=== PATIENT | male | born 1975 | race Caucasian/White ===

== ENCOUNTER 2016-09-11 15:47 | Observation (INO) ==
[2016-09-11] MEDS ORDERED: 0.9 % Sodium Chloride 1,000 ML IVC ONE (16:42)
--- NOTE | 2016-09-11 16:51 | Emergency Department Note ---
Disposition Clinical Impression: Syncope and collapse, Aneurysm artery, neck Disposition: Admitted As Inpatient Condition: Fair Referrals: Heaven Vega CNP [Primary Care Provider] - Forms: ED Satisfaction Letter General Adult HPI - General Chief complaint: ED Dizziness Stated complaint: Chest pain, passed out twice Time Seen by Provider: 09/11/16 16:02 Source: patient Nursing Notes Reviewed: Yes Vital Signs Reviewed: Yes - History of Present Illness Pain Scale: 5 - Related Data Home Medications Medication Instructions Recorded Confirmed Buprenorphine HCl/Naloxone HCl 2 film SL DAILY 10/06/15 04/24/16 [Suboxone 8 mg-2 mg Sl Film] Metformin [Glucophage] 500 mg PO BID 10/06/15 04/24/16 Potassium Chloride [K-Tab ER] 40 meq PO QID 10/06/15 04/24/16 Simvastatin [Zocor] 40 mg PO HS 10/06/15 04/24/16 Allergies Allergy/AdvReac Type Severity Reaction Status Date / Time dextrose AdvReac See Verified 09/11/16 16:00 Comments Glucose AdvReac See Verified 09/11/16 16:00 Comments Past Medical History - Past Medical History Medical history: Reports: diabetes, GERD, hyperlipidemia, kidney stones Surgical history: Reports: appendectomy, cholecystectomy Psychiatric history: Reports: no psych history - Social History Smoking Status: Current every day smoker Smokeless Tobacco Status: No Alcohol use: Reports: none Drug use: Reports: none Physical Exam - General General appearance: alert, in no apparent distress Course Vital Signs Temperature 97.5 F L 09/11/16 15:58 Pulse Rate 100 09/11/16 15:58 Respiratory Rate 18 09/11/16 15:58 Blood Pressure 132/82 09/11/16 15:58 O2 Sat by Pulse Oximetry 96 09/11/16 15:58 Temperature 97.5 F L 09/11/16 15:58 Pulse Rate 90 09/11/16 18:03 Respiratory Rate 14 09/11/16 18:03 Blood Pressure 138/60 09/11/16 18:03 O2 Sat by Pulse Oximetry 98 09/11/16 18:03 Oxygen Delivery Oxygen Delivery Room Air Medical Decision Making - MDM Narrative Medical decision making narrative: I examined this patient and my medical decision-making was reviewed with the PROSTHETIC AIDES TEACHER/PA/Advanced Practice Nurse/Resident Physician. I agree with the documented findings, disposition and treatment plan as described except to the extent set forth below. Patient was evaluated by myself and Dr. Bryson, agree with his evaluation and management plan, supervise care the patient's stay. Patient comes in today with episodes of near-syncope 2 and also syncope all while not exerting himself. He said been occurring while he rests. It is some pain on his upper chest and his neck. He had a cardiac catheterization on his heart done this past fall. He is scheduled for an EEG as he has had seizures in the past but his noted no seizure activity when these events happen. It also thought about doing a carotid duplex were negative CT of his head and neck check labs and reassess. He may need admission. Question is whether he is having a seizure, whether he is having episodes of true syncope could be a arrhythmia. And we will see what we can find here in the department. He is in agreement with this plan. Chest X-Ray 09/11/16 16:01 IMPRESSION: No acute cardiopulmonary disease. D/ / 09/11/2016 16:27:33 Dm Chi MD / lyn Interpreting Provider: Dm Chi MD Angiography CT 09/11/16 16:42 IMPRESSION: 1. No acute intracranial abnormality. 2. Unremarkable CTA of the head. 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 RECOMMENDATIONS: Vascular consultation. D/ / Phan Li MD / Phan Li MD Interpreting Provider: Phan Li MD 1900 hrs.: Patient is going to be admitted were to speak with vascular about these aneurysms. And then bring him in to the hospital. Patient's in agreement with this plan is previous. - Lab Data Result diagrams: 09/11/16 16:55 09/11/16 16:55 Lab Results 09/11/16 09/11/16 09/11/16 Range/Units 16:55 16:55 16:55 WBC 11.7 H (4.3-11.1) K/mcL RBC 5.37 (4.19-5.50) M/mcL Hgb 16.8 (12.9-16.9) g/dL Hct 48.4 (37.5-50.1) % MCV 90.1 (83.0-100.0) fL MCH 31.3 (28.0-33.3) pg MCHC 34.7 (31.6-35.5) g/dL RDW 13.1 (11.5-14.5) % Plt Count 300 (140-400) K/mcL MPV 9.1 L (9.4-12.4) fL Immature Gran % 0.4 (0-4) % Seg Neutrophils % 51.4 % Lymphocytes % 36.8 % Monocytes % 8.6 % Eosinophils % 1.8 % Basophils % 1.0 % Neutrophils # 6.0 (1.6-8.9) K/mcL Lymphocytes # 4.3 (0.6-4.6) K/mcL Monocytes # 1.0 (0.0-1.3) K/mcL Eosinophils # 0.2 (0.0-0.6) K/mcL Basophils # 0.1 (0.0-0.2) K/mcL PT 10.8 (9.4-12.1) Seconds INR 1.0 APTT 31.2 (26.0-36.0) Seconds Sodium 138 (136-145) mEq/L Potassium 3.7 (3.5-4.5) mEq/L Chloride 103 (98-109) mEq/L Carbon Dioxide 24 (19-29) mEq/L BUN 8 (8-26) mg/dL Creatinine 0.80 (0.72-1.25) mg/dL Est GFR ( Amer) > 60 (> 60) Est GFR (Non-Af Amer) > 60 (> 60) BUN/Creatinine Ratio 10 (6-26) Glucose 172 H (70-99) mg/dL Calculated Osmolality 288 (280-300) Calcium 8.9 (8.6-10.8) mg/dL Troponin I (0-0.03) ng/mL 09/11/16 Range/Units 16:55 WBC (4.3-11.1) K/mcL RBC (4.19-5.50) M/mcL Hgb (12.9-16.9) g/dL Hct (37.5-50.1) % MCV (83.0-100.0) fL MCH (28.0-33.3) pg MCHC (31.6-35.5) g/dL RDW (11.5-14.5) % Plt Count (140-400) K/mcL MPV (9.4-12.4) fL Immature Gran % (0-4) % Seg Neutrophils % % Lymphocytes % % Monocytes % % Eosinophils % % Basophils % % Neutrophils # (1.6-8.9) K/mcL Lymphocytes # (0.6-4.6) K/mcL Monocytes # (0.0-1.3) K/mcL Eosinophils # (0.0-0.6) K/mcL Basophils # (0.0-0.2) K/mcL PT (9.4-12.1) Seconds INR APTT (26.0-36.0) Seconds Sodium (136-145) mEq/L Potassium (3.5-4.5) mEq/L Chloride (98-109) mEq/L Carbon Dioxide (19-29) mEq/L BUN (8-26) mg/dL Creatinine (0.72-1.25) mg/dL Est GFR ( Amer) (> 60) Est GFR (Non-Af Amer) (> 60) BUN/Creatinine Ratio (6-26) Glucose (70-99) mg/dL Calculated Osmolality (280-300) Calcium (8.6-10.8) mg/dL Troponin I 0.00 (0-0.03) ng/mL
[2016-09-11 17:06] LABS: Basophils # 0.1 K/mcL (0.0-0.2); Eosinophils # 0.2 K/mcL (0.0-0.6); Eosinophils % 1.8 %; Hematocrit 48.4 % (37.5-50.1); Hemoglobin 16.8 g/dL (12.9-16.9); Immature Granulocytes % 0.4 % (0-4); Lymphocytes # 4.3 K/mcL (0.6-4.6); Lymphocytes % 36.8 %; Mean Corpuscular HGB Conc 34.7 g/dL (31.6-35.5); Mean Corpuscular Hemoglobin 31.3 pg (28.0-33.3); Mean Corpuscular Volume 90.1 fL (83.0-100.0); Mean Platelet Volume 9.1 fL (9.4-12.4); Monocytes % 8.6 %; Platelet Count 300 K/mcL (140-400); Red Blood Count 5.37 M/mcL (4.19-5.50); Red Cell Distribution Width 13.1 % (11.5-14.5); Segmented Neutrophils % 51.4 %
[2016-09-11 17:11] LABS: Prothrombin Time 10.8 Seconds (9.4-12.1)
[2016-09-11 17:14] LABS: Activated Partial Thrombo Time 31.2 Seconds (26.0-36.0); BUN/Creatinine Ratio 10 (6-26); Blood Urea Nitrogen 8 mg/dL (8-26); Calcium 8.9 mg/dL (8.6-10.8); Carbon Dioxide 24 mEq/L (19-29); Chloride 103 mEq/L (98-109); Glucose 172 mg/dL (70-99); Osmolality,Calculated 288 (280-300); Potassium 3.7 mEq/L (3.5-4.5); Sodium 138 mEq/L (136-145); eGFR For African Americans > 60 (> 60); eGFR For Non-African Americans > 60 (> 60)
--- NOTE | 2016-09-11 17:18 | Emergency Department Note ---
Disposition Clinical Impression: Syncope and collapse, Aneurysm artery, neck Disposition: Admitted As Inpatient Condition: Good Referrals: Heaven Vega CNP [Primary Care Provider] - Forms: ED Satisfaction Letter General Adult HPI - General Chief complaint: ED Dizziness Stated complaint: Chest pain, passed out twice Time Seen by Provider: 09/11/16 16:02 Source: patient Limitations: no limitations Nursing Notes Reviewed: Yes Vital Signs Reviewed: Yes - History of Present Illness HPI Narrative: 41 y/o male who reports syncope x4 times in the last few days. He admits to syncope while sitting down. Associated is symptoms of presyncope, followed by left neck and left chest pain with dyspnea. He has had witnessed syncope while sitting in his chair at home. Cath done in march which was normal. Medical problems include DM, HLD. He takes metformin and a statin. Does admit to constant left neck pain. Radiation: non-radiation, neck Pain Severity: moderate Pain Scale: 5 Consistency: constant Improves with: nothing Worsens with: nothing Associated symptoms: Reports: denies other symptoms - Related Data Home Medications Medication Instructions Recorded Confirmed Buprenorphine HCl/Naloxone HCl 2 film SL DAILY 10/06/15 04/24/16 [Suboxone 8 mg-2 mg Sl Film] Metformin [Glucophage] 500 mg PO BID 10/06/15 04/24/16 Potassium Chloride [K-Tab ER] 40 meq PO QID 10/06/15 04/24/16 Simvastatin [Zocor] 40 mg PO HS 10/06/15 04/24/16 Potassium Chloride [Klor-Con] 25 meq PO DAILY PRN 09/11/16 09/11/16 Allergies Allergy/AdvReac Type Severity Reaction Status Date / Time dextrose AdvReac See Verified 09/11/16 16:00 Comments Glucose AdvReac See Verified 09/11/16 16:00 Comments All systems ED: reviewed and negative except as stated. Constitutional: Denies: fever Eyes: Denies: vision change ENT ED: Denies: throat pain Cardiovascular: Reports: chest pain Respiratory: Denies: cough Gastrointestinal: Denies: abdominal pain Integumentary: Denies: rash Neurological: Reports: headache Past Medical History - Past Medical History Medical history: Reports: diabetes, GERD, hyperlipidemia, kidney stones Surgical history: Reports: appendectomy, cholecystectomy Psychiatric history: Reports: no psych history - Social History Smoking Status: Current every day smoker Smokeless Tobacco Status: No Alcohol use: Reports: none Drug use: Reports: none Physical Exam - General Limitations: no limitations General appearance: alert, in no apparent distress - Head Head exam: atraumatic - Eye Eye exam: Present: normal appearance - ENT ENT exam: normal exam, normal oropharynx - Neck Neck exam: Present: normal inspection, full ROM, other (no murmur). Absent: tenderness - Chest Chest inspection: Present: normal inspection - Respiratory Respiratory exam: Present: normal lung sounds bilaterally. Absent: respiratory distress - Cardiovascular Cardiovascular exam: Present: regular rate, normal rhythm - Abdominal Exam Abdominal exam: Present: soft, Non-Tender - Extremities Exam Extremities exam: Present: normal inspection - Neurological Exam Neurological exam: Present: alert, oriented X3 - Psychiatric Psychiatric exam: Present: normal affect, normal mood Course Course Narrative: Pt with syncope and associated chest pain and neck pain. Will order CTA of head /neck and chest pain workup. - Reevaluation(s) Reevaluation #1: CTA demonstrates findings concerning for a left ICA aneurysm. Will page Catherine for consultation. Spoke with Catherine who agreed to be a applications development consultant on this case. No plan for surgical intervention tonight. Spoke with hospitalist who accepted for admission Vital Signs Temperature 97.5 F L 09/11/16 15:58 Pulse Rate 100 09/11/16 15:58 Respiratory Rate 18 09/11/16 15:58 Blood Pressure 132/82 09/11/16 15:58 O2 Sat by Pulse Oximetry 96 09/11/16 15:58 Temperature 97.5 F L 09/11/16 15:58 Pulse Rate 90 09/11/16 18:03 Respiratory Rate 14 09/11/16 18:03 Blood Pressure 138/60 09/11/16 18:03 O2 Sat by Pulse Oximetry 98 09/11/16 18:03 Oxygen Delivery Oxygen Delivery Room Air Medical Decision Making - Medical Records Medical records reviewed: Yes I reviewed the patient's medical records. - Lab Data Lab results reviewed: Yes I reviewed the patient's lab results. Result diagrams: 09/11/16 16:55 09/11/16 16:55 Lab Results 09/11/16 09/11/16 09/11/16 Range/Units 16:55 16:55 16:55 WBC 11.7 H (4.3-11.1) K/mcL RBC 5.37 (4.19-5.50) M/mcL Hgb 16.8 (12.9-16.9) g/dL Hct 48.4 (37.5-50.1) % MCV 90.1 (83.0-100.0) fL MCH 31.3 (28.0-33.3) pg MCHC 34.7 (31.6-35.5) g/dL RDW 13.1 (11.5-14.5) % Plt Count 300 (140-400) K/mcL MPV 9.1 L (9.4-12.4) fL Immature Gran % 0.4 (0-4) % Seg Neutrophils % 51.4 % Lymphocytes % 36.8 % Monocytes % 8.6 % Eosinophils % 1.8 % Basophils % 1.0 % Neutrophils # 6.0 (1.6-8.9) K/mcL Lymphocytes # 4.3 (0.6-4.6) K/mcL Monocytes # 1.0 (0.0-1.3) K/mcL Eosinophils # 0.2 (0.0-0.6) K/mcL Basophils # 0.1 (0.0-0.2) K/mcL PT 10.8 (9.4-12.1) Seconds INR 1.0 APTT 31.2 (26.0-36.0) Seconds Sodium 138 (136-145) mEq/L Potassium 3.7 (3.5-4.5) mEq/L Chloride 103 (98-109) mEq/L Carbon Dioxide 24 (19-29) mEq/L BUN 8 (8-26) mg/dL Creatinine 0.80 (0.72-1.25) mg/dL Est GFR ( Amer) > 60 (> 60) Est GFR (Non-Af Amer) > 60 (> 60) BUN/Creatinine Ratio 10 (6-26) Glucose 172 H (70-99) mg/dL Calculated Osmolality 288 (280-300) Calcium 8.9 (8.6-10.8) mg/dL Troponin I (0-0.03) ng/mL 09/11/16 Range/Units 16:55 WBC (4.3-11.1) K/mcL RBC (4.19-5.50) M/mcL Hgb (12.9-16.9) g/dL Hct (37.5-50.1) % MCV (83.0-100.0) fL MCH (28.0-33.3) pg MCHC (31.6-35.5) g/dL RDW (11.5-14.5) % Plt Count (140-400) K/mcL MPV (9.4-12.4) fL Immature Gran % (0-4) % Seg Neutrophils % % Lymphocytes % % Monocytes % % Eosinophils % % Basophils % % Neutrophils # (1.6-8.9) K/mcL Lymphocytes # (0.6-4.6) K/mcL Monocytes # (0.0-1.3) K/mcL Eosinophils # (0.0-0.6) K/mcL Basophils # (0.0-0.2) K/mcL PT (9.4-12.1) Seconds INR APTT (26.0-36.0) Seconds Sodium (136-145) mEq/L Potassium (3.5-4.5) mEq/L Chloride (98-109) mEq/L Carbon Dioxide (19-29) mEq/L BUN (8-26) mg/dL Creatinine (0.72-1.25) mg/dL Est GFR ( Amer) (> 60) Est GFR (Non-Af Amer) (> 60) BUN/Creatinine Ratio (6-26) Glucose (70-99) mg/dL Calculated Osmolality (280-300) Calcium (8.6-10.8) mg/dL Troponin I 0.00 (0-0.03) ng/mL - Radiology Data Radiology results reviewed: Yes I reviewed the patient's radiology results. - EKG Data EKG #1 EKG attestation: Yes I reviewed and interpreted this EKG. EKG shows normal: sinus rhythm Rate: normal Rhythm: NSR When compared to previous EKG there are: no significant changes Interpretation: no acute changes
[2016-09-11] MEDS: Nicotine 21 MG PATCH.TD24 TD SCH (20:44)
[2016-09-11] MEDS ORDERED: Naloxone 0.4 MG/ML INJ IVP PRN (22:24)
[2016-09-11] MEDS ORDERED: Acetaminophen 325 MG TABLET PO PRN (22:24)
[2016-09-11] MEDS ORDERED: Ondansetron ODT 4 MG TAB.RAPDIS SL PRN (22:24)
[2016-09-11] MEDS ORDERED: 0.9 % Sodium Chloride 1,000 ML IVC SCH (22:30)
[2016-09-11] MEDS ORDERED: Melatonin 3 MG TABLET PO PRN (22:34)
--- NOTE | 2016-09-11 22:46 | Internal Med History&Physical ---
<Yee Hernandez - Last Filed: 09/11/16 23:48> Date of Encounter: 09/11/16 Time of Encounter: 22:44 Assessment and Plan (1) Syncope and collapse Current visit: Yes Status: Acute vasovagal vs neurocargiogenic vs orthostatic vs other telemetry, pulse ox, BP monitoring orthostatics cardiology consult npo at midnight (2) Aneurysm artery, neck Current visit: Yes Status: Acute most likely not responsible for recent syncope vascular surgery consulted npo at midnight (3) Hypokalemic familial periodic paralysis Current visit: Yes Status: Chronic continue home dose of potassium (4) Hyperlipidemia Current visit: Yes Status: Chronic continue statin Qualifiers: Hyperlipidemia type: unspecified Qualified Code(s): E78.5 - Hyperlipidemia , unspecified (5) Diabetes Current visit: Yes Status: Chronic currently NPO pending vascular surgery consult plan for SQ insulin while inpatient with accuchecks Qualifiers: Diabetes mellitus type: type 2 Diabetes mellitus complication status: without complication Diabetes mellitus nursing home insulin use: without nursing home use Qualified Code(s): E11.9 - Type 2 diabetes mellitus without complications (6) Tobacco abuse Current visit: Yes Status: Chronic nicotine patch (7) DVT prophylaxis Current visit: Yes Status: Acute SQ heparin Internal Medicine - H&P: HPI Chief complaint: multiple syncope Admitted From: Emergency Dept Plans for Post Hospital Care: Home History of present illness: Mr. Ochoa is a 41 year old diabetic male who presents with a 4 day history of unprovoked, non-exertional syncope with multiple (4) episodes occuring while he was a passenger in a car and sitting on the couch. He states that he had one episode of presyncope with associated dizziness and tunnel vision followed by his first syncopal episode - both of these happened while he was a passenger in a car. He later passed out while sitting on his couch watching tv. That time he felt left-sided chest pain that radiated into his axilla and up his neck. The neck pain has remained, but the chest and axilla pain was were very brief. The last episode of syncope happened again while he was a passenger in a car. Past Med Surg Social Fam HX - Past Medical History Medical history: diabetes, GERD, hyperlipidemia, kidney stones, other ( hypokalemic periodic paralysis) Psychiatric history: no psych history - Past Surgical History Surgical History: appendectomy, cholecystectomy - Social History Smoking Status: Current every day smoker (1 ppd) Smokeless Tobacco Status: No Alcohol use: none Drug use: none Occupational status: disabled Current living situation: Home - Independent Activity Level: Independent ambulation - Family History Mother Living Status: Age at : 58 Hx Family Cancer: Yes (thyroid) Father Living Status: Age at : 55 Hx Family Cancer: Yes (colon) Internal Medicine - H&P: Meds Buprenorphine HCl/Naloxone HCl [Suboxone 8 mg-2 mg Sl Film] 2 film SL DAILY [History] Metformin [Glucophage] 500 mg PO BID 10/06/15 [History] Potassium Chloride [K-Tab ER] 40 meq PO QID 10/06/15 [History] Simvastatin [Zocor] 40 mg PO HS 10/06/15 [History] Potassium Chloride [Klor-Con] 25 meq PO DAILY PRN 09/11/16 [History] Allergies dextrose Adverse Reaction (Verified 09/11/16 16:00) See Comments PATIENT STATES THAT HE EXPERIENCES hypokalemic periodic paralysis IF GIVEN "SUGAR" IN HIS IV Glucose Adverse Reaction (Verified 09/11/16 16:00) See Comments PATIENT STATES THAT HE EXPERIENCES hypokalemic periodic paralysis IF GIVEN "SUGAR" IN HIS IV All Systems PM: A 10-system review of systems was performed and is negative for pertinent findings except as documented above in the HPI. - Constitutional Constitutional: no chills, no fatigue, no fever(s), no night sweats, no weakness - EENT Eyes: change in vision, tunnel vision, no discharge, no pain, no photophobia Ears: no ear discharge, no ear pain, no tinnitus Nose, mouth and throat: no dysphagia, no nasal discharge, no neck pain, no sore throat - Cardiovascular Cardiovascular ROS IM: chest pain, no diaphoresis, no dyspnea, no lightheadedness, no palpitations, no syncope - Respiratory Respiratory: no cough, no dyspnea, no wheezing, no excessive phlegm production - Gastrointestinal Gastrointestinal: nausea, no abdominal pain, no change in stool character, no diarrhea, no hematemesis, no hematochezia, no melena, no vomiting - Genitourinary Genitourinary ROS male: no difficulty urinating, no dysuria - Musculoskeletal Musculoskeletal ROS IM: no arthralgias, no myalgias, no numbness, no tingling - Integumentary Integumentary IM: no rash, no unusual bruising - Neurological Neurological ROS: disequilibrium, dizziness, headache(s), other (syncope), no confusion, no convulsions, no focal weakness, no numbness, no paresthesias, no tingling, no tremor(s) - Hematologic/Lymphatic Hematologic/Lymphatic: no easy bruising - Constitutional Vitals: Temp Pulse Resp BP Pulse Ox 98.2 F 85 16 133/79 96 09/11/16 20:55 09/11/16 20:55 09/11/16 20:55 09/11/16 20:55 09/11/16 20:55 General appearance: Present: A&O X 3, answers questions appropriately - Head Head exam: Present: atraumatic, normocephalic - Eye Eye exam: Present: PERRL, conjuntiva pink, sclera anicteric Pupils: Present: PERRL - Neck Neck exam general surgery: Present: supple, trachea midline. Absent: lymphadenopathy - Respiratory Respiratory exam: Present: CTAB. Absent: accessory muscle use, rales, rhonchi, wheezes - Cardiovascular Cardiovascular exam: Present: RRR, +S1, +S2. Absent: diastolic murmur, gallop, rubs, systolic murmur - GI/Abdominal GI/Abdominal exam: Present: normal bowel sounds, soft, no peritoneal signs. Absent: distended, tenderness - Extremities Exam Extremities exam: Present: warm, radial pulses palpable and symetrical. Absent : calf tenderness, cyanotic, pedal edema - Neurological Exam Neurological exam: Present: CN II-XII intact, oriented X3, no focal deficits. Absent: pronater drift, facial droop, speech deficit - Skin Skin exam: Present: dry, intact Internal Med - H&P Results - Labs CBC & Chem 7: 09/11/16 16:55 09/11/16 16:55 <Jv Kramer - Last Filed: 09/12/16 05:34> Date of Encounter: 09/11/16 Internal Medicine - H&P: HPI History of present illness: Mr. Ochoa is a 41 year old male noted to [facility] via the emergency department when he presented with complaints of chest/neck pain and syncope. The patient was visited and interviewed and examined. I examined this patient and my medical decision-making was reviewed with the Resident Physician. For this encounter, I have reviewed the documentation, treatment plan, and medical decision making. I agree with the documented findings, disposition and treatment plan as described except to the extent set forth below. Cumulative laboratory and radiographic database was reviewed and considered and discussed. Given the patient's presenting concerns, past medical history, clinical findings and symptoms, he is admitted at this time to undergo further evaluation and disposition. All Systems PM: A 10-system review of systems was performed and is negative for pertinent findings except as documented above in the HPI. - Constitutional Vitals: Temp Pulse Resp BP Pulse Ox 97.5 F L 83 16 130/73 96 09/12/16 03:30 09/12/16 03:30 09/12/16 03:30 09/12/16 03:30 09/12/16 03:30 Internal Med - H&P Results - Labs CBC & Chem 7: 09/11/16 16:55 09/12/16 04:01 Labs: BMP 09/12/16 04:01 Sodium 138 Potassium 3.5 Chloride 105 Carbon Dioxide 26 BUN 7 L Creatinine 0.66 L Glucose 115 H Calcium 8.3 L - Impressions Vital Signs Temp Pulse Resp BP Pulse Ox 09/12/16 03:30 97.5 F L 83 16 130/73 96 09/11/16 23:00 91 09/11/16 20:55 98.2 F 85 16 133/79 96 09/11/16 20:45 98 F 18 138/68 09/11/16 20:15 88 16 136/66 98 09/11/16 18:03 90 14 138/60 98 09/11/16 15:58 97.5 F L 100 18 132/82 96 Intake and Output 09/11/16 09/11/16 09/12/16 15:59 23:59 07:59 Intake Total 1000 / 1000 Balance 1000 / 1000 Intake: IV Fluids 1000 / 1000 0.9 % Sodium Chloride 1, 1000 / 1000 000 ML @ 3750 mls/hr IVC .Q16M ONE Rx#:[id number] Other: Weight 108.862 kg 111.5 kg 110 kg Patient Weight 09/12/16 23:59 Weight 110 kg Short CBC 09/11/16 Range/Units 16:55 WBC 11.7 H (4.3-11.1) K/mcL Hgb 16.8 (12.9-16.9) g/dL Hct 48.4 (37.5-50.1) % Plt Count 300 (140-400) K/mcL Neutrophils # 6.0 (1.6-8.9) K/mcL BMP 09/12/16 09/11/16 Range/Units 04:01 16:55 Sodium 138 138 (136-145) mEq/L Potassium 3.5 3.7 (3.5-4.5) mEq/L Chloride 105 103 (98-109) mEq/L Carbon Dioxide 26 24 (19-29) mEq/L BUN 7 L 8 (8-26) mg/dL Creatinine 0.66 L 0.80 (0.72-1.25) mg/dL Glucose 115 H 172 H (70-99) mg/dL Calcium 8.3 L 8.9 (8.6-10.8) mg/dL Cardiac Enzymes 09/11/16 Range/Units 16:55 Troponin I 0.00 (0-0.03) ng/mL Abnormal lab results WBC 11.7 K/mcL (4.3-11.1) H 09/11/16 16:55 MPV 9.1 fL (9.4-12.4) L 09/11/16 16:55 BUN 7 mg/dL (8-26) L 09/12/16 04:01 Creatinine 0.66 mg/dL (0.72-1.25) L 09/12/16 04:01 Glucose 115 mg/dL (70-99) H 09/12/16 04:01 Calcium 8.3 mg/dL (8.6-10.8) L 09/12/16 04:01 Allergies Allergy/AdvReac Type Severity Reaction Status Date / Time dextrose AdvReac See Verified 09/11/16 16:00 Comments Glucose AdvReac See Verified 09/11/16 16:00 Comments Laboratory Results WBC 11.7 K/mcL (4.3-11.1) H 09/11/16 16:55 RBC 5.37 M/mcL (4.19-5.50) 09/11/16 16:55 Hgb 16.8 g/dL (12.9-16.9) 09/11/16 16:55 Hct 48.4 % (37.5-50.1) 09/11/16 16:55 MCV 90.1 fL (83.0-100.0) 09/11/16 16:55 MCH 31.3 pg (28.0-33.3) 09/11/16 16:55 MCHC 34.7 g/dL (31.6-35.5) 09/11/16 16:55 RDW 13.1 % (11.5-14.5) 09/11/16 16:55 Plt Count 300 K/mcL (140-400) 09/11/16 16:55 MPV 9.1 fL (9.4-12.4) L 09/11/16 16:55 Immature Gran % 0.4 % (0-4) 09/11/16 16:55 Seg Neutrophils % 51.4 % 09/11/16 16:55 Lymphocytes % 36.8 % 09/11/16 16:55 Monocytes % 8.6 % 09/11/16 16:55 Eosinophils % 1.8 % 09/11/16 16:55 Basophils % 1.0 % 09/11/16 16:55 Neutrophils # 6.0 K/mcL (1.6-8.9) 09/11/16 16:55 Lymphocytes # 4.3 K/mcL (0.6-4.6) 09/11/16 16:55 Monocytes # 1.0 K/mcL (0.0-1.3) 09/11/16 16:55 Eosinophils # 0.2 K/mcL (0.0-0.6) 09/11/16 16:55 Basophils # 0.1 K/mcL (0.0-0.2) 09/11/16 16:55 PT 10.8 Seconds (9.4-12.1) 09/11/16 16:55 INR 1.0 09/11/16 16:55 APTT 31.2 Seconds (26.0-36.0) 09/11/16 16:55 Sodium 138 mEq/L (136-145) 09/12/16 04:01 Potassium 3.5 mEq/L (3.5-4.5) 09/12/16 04:01 Chloride 105 mEq/L (98-109) 09/12/16 04:01 Carbon Dioxide 26 mEq/L (19-29) 09/12/16 04:01 BUN 7 mg/dL (8-26) L 09/12/16 04:01 Creatinine 0.66 mg/dL (0.72-1.25) L 09/12/16 04:01 Est GFR ( Amer) > 60 (> 60) 09/12/16 04:01 Est GFR (Non-Af Amer) > 60 (> 60) 09/12/16 04:01 BUN/Creatinine Ratio 11 (6-26) 09/12/16 04:01 Glucose 115 mg/dL (70-99) H 09/12/16 04:01 Calculated Osmolality 285 (280-300) 09/12/16 04:01 Calcium 8.3 mg/dL (8.6-10.8) L 09/12/16 04:01 Troponin I 0.00 ng/mL (0-0.03) 09/11/16 16:55 Impressions Chest X-Ray 09/11/16 16:01 IMPRESSION: No acute cardiopulmonary disease. D/ / 09/11/2016 16:27:33 Dm Chi MD / lyn Interpreting Provider: Dm Chi MD Angiography CT 09/11/16 16:42 IMPRESSION: 1. No acute intracranial abnormality. 2. Unremarkable CTA of the head. 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 RECOMMENDATIONS: Vascular consultation. D/ / Phan Li MD / Phan Li MD Interpreting Provider: Phan Li MD - Attending Attestation My signature below is to certify that this patient is under my care and that I, or the Resident Physician working with me, has had a czhu-[id number]-zilb encounter with this patient. Care has been reviewed and discussed in detail with the patient. Questions addressed. Advance care directive discussion fully addressed. Patient does not declare any healthcare restrictions at this time. Outpatient medication schedules will be reviewed, confirmed and facilitated as appropriate. Reconciliation of home treatments including adjustments, substitutions and reintroduction into the treatment regimen will request a serum maintenance therapies for chronic pre-existing medical conditions. Hospital course dictated by clinical findings, treatment response and potential consultative interventions. The patient is at risk for further acute clinical decline and morbidity given this presenting chief complaint, findings and associated comorbidities. Condition is serious. Prognosis is guarded. CODE STATUS is full.
[2016-09-11] MEDS ORDERED: *HR* Heparin 5,000 UNIT/ML VIAL SQ SCH (23:00)
[2016-09-12 04:17] VITALS: BP 130/73
[2016-09-12 04:56] LABS: BUN/Creatinine Ratio 11 (6-26); Blood Urea Nitrogen 7 mg/dL (8-26); Calcium 8.3 mg/dL (8.6-10.8); Carbon Dioxide 26 mEq/L (19-29); Chloride 105 mEq/L (98-109); Glucose 115 mg/dL (70-99); Osmolality,Calculated 285 (280-300); Potassium 3.5 mEq/L (3.5-4.5); Sodium 138 mEq/L (136-145); eGFR For African Americans > 60 (> 60); eGFR For Non-African Americans > 60 (> 60)
[2016-09-12] MEDS ORDERED: Ondansetron 4 MG/2 ML VIAL IVP PRN (05:07)
[2016-09-12] MEDS ORDERED: Dextrose Gel 15 GM PO PRN ×2 (05:10)
[2016-09-12] MEDS ORDERED: *HR* Dextrose 50 % in Water (Syg) 50 ML SYRINGE IVP PRN (05:10)
[2016-09-12] MEDS ORDERED: D5% in Water 1,000 ML IV PRN (05:10)
[2016-09-12 05:53] LABS: Hemoglobin A1C 5.7 %
[2016-09-12] MEDS ORDERED: Insulin LISPRO 300 UNITS/3 ML VIAL SQ SCH (06:00)
[2016-09-12 07:04] LABS: Ionized Calcium 1.11 mmol/L (1.15-1.35); VBG HCO3 27.2 mEq/L (21-27); VBG PH 7.42 pH Units (7.32-7.42)
[2016-09-12 07:14] LABS: Albumin 3.4 g/dL (3.5-5.0); Bilirubin,Direct 0.1 mg/dL (0.0-0.5); Bilirubin,Indirect 0.3 mg/dL (0.0-1.2); Bilirubin,Total 0.4 mg/dL (0.2-1.2); Globulin 3.3 g/dL (2.4-3.5); Magnesium 1.7 mg/dL (1.6-2.6); Phosphorous 2.8 mg/dL (2.3-4.7); Total Protein 6.7 g/dL (6.0-8.3)
[2016-09-12 07:32] LABS: Triiodothyronine (T3) Free 3.03 pg/mL (1.71-3.71)
[2016-09-12] MEDS: Nicotine 21 MG PATCH.TD24 TD SCH (07:38)
--- NOTE | 2016-09-12 08:54 | Discharge Summary ---
Date of Encounter: 09/12/16 Time of Encounter: 08:00 - Discharge Diagnosis (1) Aneurysm artery, neck Priority: Secondary Status: Acute (2) DVT prophylaxis Priority: Secondary Status: Acute (3) Syncope and collapse Priority: Primary Status: Acute (4) Diabetes Priority: Secondary Status: Chronic Qualifiers: Diabetes mellitus type: type 2 Diabetes mellitus complication status: without complication Diabetes mellitus long-term insulin use: without terminal system operator use Qualified Code(s): E11.9 - Type 2 diabetes mellitus without complications (5) Hyperlipidemia Priority: Secondary Status: Chronic Qualifiers: Hyperlipidemia type: unspecified Qualified Code(s): E78.5 - Hyperlipidemia , unspecified - Discharge Medications Home Medications: Buprenorphine HCl/Naloxone HCl [Suboxone 8 mg-2 mg Sl Film] 2 film SL DAILY [History] Metformin [Glucophage] 500 mg PO BID 10/06/15 [History] Potassium Chloride [K-Tab ER] 40 meq PO QID 10/06/15 [History] Simvastatin [Zocor] 40 mg PO HS 10/06/15 [History] Potassium Chloride [Klor-Con] 25 meq PO DAILY PRN 09/11/16 [History] Allergies/Adverse Reactions: Allergies dextrose Adverse Reaction (Verified 09/11/16 16:00) See Comments PATIENT STATES THAT HE EXPERIENCES hypokalemic periodic paralysis IF GIVEN "SUGAR" IN HIS IV Glucose Adverse Reaction (Verified 09/11/16 16:00) See Comments PATIENT STATES THAT HE EXPERIENCES hypokalemic periodic paralysis IF GIVEN "SUGAR" IN HIS IV Procedures/tests Complete & Pending: Procedures Performed prior 72 hours Category Date Time Status MR head/brain wo con [MR] Routine MRI 09/12/16 05:25 Ordered EV echocardiogram w enhance Routine Y 09/12/16 05:25 Ordered Date of admission: 09/11/16 20:45 Primary care physician: Heaven Vega CNP Consults: 09/11/16 23:32 Consult to Cardiology [CONS] Routine Comment: Consulting Provider: Cardiology Caroline Reason for Consult: syncope x4 Call Completed: No Discharging clinician: Renee Pratt Anticipated date of discharge: 09/12/16 - Patient Status Disposition: Home, Self-Care Condition: Good Functional capacity at discharge: independent ambulation Overall status at discharge: patient is back to baseline - Discharge Instructions Follow Up With: Heaven Vega CNP [Primary Care Provider] - Boston Alexander MD [Partnered Physician] - 09/24/16 2:50 pm Funmilayo Desai CNP [Advanced Practice Nurse] - 09/20/16 10:15 am Additional Instructions: Please follow up with your primary care physician within one week after your discharge from the hospital. Please follow up with vascular surgery (Dr. Alexander) within two weeks after your discharge from the hospital. Please resume all your home medications as prescribed by your primary care physician. Please inform your primary care physician about your hospital diagnosis and possible referral to a neurosurgeon. Please seek medical help if syncopal episodes continue to occur. - Diet and Activity Activity: resume usual activities as tolerated Diet: diabetic diet Hospital course: Mr. Ochoa is a 41 year old male with PMH of DM, GERD, HLD, morbid obesity who was admitted for further evaluation of multiple syncopal episodes. Patient reported of having occurrence of these episodes frequently starting four days prior to hospitalization. 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 Alexander) was consulted. Patient was seen and evaluated by Dr. Alexander, and as per his recommendations, it is unlikely that the syncopal episodes are caused by this microaneurysm and patient would benefit from a follow up with neurosurgery on outpatient basis. Patient had a CTA Head done as well which showed no acute intracranial abnormality and it was an unremarkable study. At this time patient is hemodynamically stable.No syncopal episodes have been reported since hospitalization. No further intervention is recommended by vascular surgery while in patient and outpatient follow up is advised. Patient will be discharged to home with follow up with PCP and vascular surgery within one week after his discharge from the hospital. Patient demonstrates understanding of his diagnosis and agrees with the discharge plan. - Time Spent with Patient Total time spent providing and/or coordinating discharge services: Greater than 30 minutes - Constitutional Vitals: Temp Pulse Resp BP Pulse Ox 97.5 F L 84 16 130/73 96 09/12/16 03:30 09/12/16 07:30 09/12/16 03:30 09/12/16 03:30 09/12/16 03:30 General appearance: Present: A&O X 3, morbidly obese, no acute distress, answers questions appropriately - Head Head exam: Present: atraumatic, normocephalic - Eye Eye exam: Present: conjuntiva pink, sclera anicteric - Respiratory Respiratory exam: Present: CTAB. Absent: respiratory distress, wheezes - Cardiovascular Cardiovascular exam: Present: RRR, +S1, +S2 - GI/Abdominal GI/Abdominal exam: Present: distended (obese), normal bowel sounds, soft. Absent: tenderness - Extremities Exam Extremities exam: Present: warm, radial pulses palpable and symetrical. Absent : calf tenderness, pedal edema - Neurological Exam Neurological exam: Present: alert, oriented X3, no focal deficits, strengths equal and symetr throughout. Absent: facial droop, speech deficit - Psychiatric Psychiatric exam: Present: normal affect, normal mood
[2016-09-12] MEDS ORDERED: FLU VACC QS2016-17 36MOS UP/PF 0.5 ML SYRINGE IM ONE (08:57)
--- NOTE | 2016-09-12 08:58 | Electrocardiograph Report ---
[place] [id number] Test Date: 2016-09-11 Pat Name: Shashi Ochoa Department: 105 Room: 2N03 Gender: M Vp Product Management: : 1975 Requested By: Zechariah Arroyo Order Number: [id number] Reading MD: Dion Conn MD Measurements Intervals Warren Rate: 94 P: 59 NC: 157 QRS: -41 QRSD: 97 T: 43 QT: 319 QTc: 371 Interpretive Statements SINUS RHYTHM MARKED LEFT AXIS DEVIATION Electronically Signed On 09-12-2016 8:56:47 EST by Dion Conn MD
[2016-09-12] MEDS ORDERED: (Suboxone 8 Mg-2 Mg) SL SCH (09:00)
[2016-09-12] MEDS ORDERED: Nicotine 7 MG PATCH.TD24 TD SCH (09:00)
--- NOTE | 2016-09-12 09:00 | Vascular/Endovasc Consult Note ---
Date of Encounter: 09/12/16 Time of Encounter: 07:55 Assessment and Plan (1) Aneurysm of left internal carotid artery Status: Acute The pathophysiology and natural history of carotid aneurysms was discussed with the patient and all questions were answered. He has a 3mm aneurysm of the distal cervical internal carotid artery. There is no evidence of rupture or extrinsic compression of the internal carotid artery. This does not appear to be the etiology of his syncope. He denies any signs or symptoms of CVA, TIA or amaurosis fugax. He denies headaches. Neurosurgical or neurointerventional evaluation is recommended. He may follow-up in vascular clinic and our office will coordinate his referral. He was advised to seek immediate medical attention for recurrent symptoms or other neurologic symptoms. (2) Diabetes Status: Chronic He was counseled regarding atherosclerotic risk factor reduction. Qualifiers: Diabetes mellitus type: type 2 Diabetes mellitus complication status: without complication Diabetes mellitus longterm insulin use: without intermediate card tender use Qualified Code(s): E11.9 - Type 2 diabetes mellitus without complications (3) Hyperlipidemia Status: Chronic Qualifiers: Hyperlipidemia type: unspecified Qualified Code(s): E78.5 - Hyperlipidemia , unspecified (4) Tobacco abuse Status: Chronic The patient was counseled regarding smoking cessation. - History of Present Illness Consult date: 09/12/16 Requesting physician: Cam Bryson Consult reason: Carotid artery aneurysm Chief complaint: Syncope History of present illness: Mr. Ochoa is a 41 year old male who presented to [facility] with complaints of a syncopal episode. He reports that he has had syncope several times recently and has been evaluated in the past. He reports that the cause has not yet been determined. He reports that he was riding in a car and began to have dizziness , neck pain and then everything went dark. He reports that his prior episodes were similar. Several happened while riding in a car, but at least one has happened while he was seated in his living room. He reports that since admission he has had no further episodes. He denies any symptoms of CVA, TIA or amaurosis fugax. He denies any palpitations. He denies chest pain or shortness of breath. As part of his evaluation he underwent a CTA of the neck. He was found to have a small aneurysm arising from the distal cervical carotid artery. Vascular surgery was then consulted for further evaluation. Past Med Surg Social Fam HX - Past Medical History Medical history: diabetes, GERD, hyperlipidemia, kidney stones, other ( hypokalemic periodic paralysis) Psychiatric history: no psych history - Past Surgical History Surgical History: appendectomy, cholecystectomy - Social History Smoking Status: Current every day smoker (1 ppd) Smokeless Tobacco Status: No Alcohol use: none Drug use: none - Family History Mother Living Status: Age at : 58 Hx Family Cancer: Yes (thyroid) Father Living Status: Age at : 55 Hx Family Cancer: Yes (colon) Medications and Allergies Buprenorphine HCl/Naloxone HCl [Suboxone 8 mg-2 mg Sl Film] 2 film SL DAILY [History] Metformin [Glucophage] 500 mg PO BID 10/06/15 [History] Potassium Chloride [K-Tab ER] 40 meq PO QID 10/06/15 [History] Simvastatin [Zocor] 40 mg PO HS 10/06/15 [History] Potassium Chloride [Klor-Con] 25 meq PO DAILY PRN 09/11/16 [History] Allergies dextrose Adverse Reaction (Verified 09/11/16 16:00) See Comments PATIENT STATES THAT HE EXPERIENCES hypokalemic periodic paralysis IF GIVEN "SUGAR" IN HIS IV Glucose Adverse Reaction (Verified 09/11/16 16:00) See Comments PATIENT STATES THAT HE EXPERIENCES hypokalemic periodic paralysis IF GIVEN "SUGAR" IN HIS IV All Systems Review: A 10-system review of systems was performed and is negative for pertinent findings except as documented above in the HPI. - Constitutional Constitutional: no chills, no fever(s) - EENT Eyes: no loss of vision - Cardiovascular Cardiovascular: no chest pain at rest, no chest pain with exertion, no dyspnea at rest, no dyspnea on exertion, no palpitations - Vascular Vascular: no stroke/TIA - Gastrointestinal Gastrointestinal: no abdominal pain Exam Vital Signs, Last 4 Hours Pulse 09/12/16 07:30 84 General: Present: Conversant HEENT: Present: Atraumatic, Trachea midline, Pupils equal Neck: Absent: JVD, Lymphadenopathy, Left Carotid bruit, Right Carotid bruit Cardiac: Present: Reg Rate and Rhythm, Normal S1 and S2, No Murmur Lungs: Present: Normal Breath Sounds, No Wheeze, Rales, Rhonchi Neuro: Present: Alert and responsive, No focal deficits noted, Cranial nerves grossly intact, Motor nerves grossly intact, Sensory nerves grossly intact Abdomen: Present: Soft, Non-tender. Absent: Hepatosplenomegaly, Masses Vascular: Present: Normal capillary refill, Pulse, normal. Absent: Cyanosis, Edema Skin: Present: No rashes noted on visualized skin. Absent: Wound/ulcer(s) Musculoskeletal: Present: No Chest Wall Tenderness Consult Discharge Plan - Plan Additional Instructions: Please follow up with your primary care physician within one week after your discharge from the hospital. Please follow up with vascular surgery (Dr. Alexander) within two weeks after your discharge from the hospital. Please resume all your home medications as prescribed by your primary care physician. Please inform your primary care physician about your hospital diagnosis and possible referral to a neurosurgeon. Please seek medical help if syncopal episodes continue to occur. Referrals: Heaven Vega CNP [Primary Care Provider] - Boston Alexander MD [Partnered Physician] - 09/24/16 2:50 pm Funmilayo Desai CNP [Advanced Practice Nurse] - 09/20/16 10:15 am
[2016-09-12 10:22] LABS: Prolactin 11.53 ng/mL (3.46-19.40)
== END 2016-09-12 09:53 | disposition home or self-care (01) ==
LOC: EMEROO 15:47 → 2NNU 15:47
PROVIDERS: ADMIT Internal Medicine; ATTEND Internal Medicine

== ENCOUNTER 2018-01-31 12:56 | Observation (INO) ==
[2018-01-31] MEDS ORDERED: Isovue-370 500 ML INFUS..BTL IV ONE (15:10)
[2018-01-31] MEDS ORDERED: Naloxone 0.4 MG/ML INJ IVP PRN (15:11)
[2018-01-31] MEDS ORDERED: D5% in Water 1,000 ML IVC PRN (15:34)
[2018-01-31] MEDS ORDERED: *HR* Dextrose 50 % in Water (Syg) 50 ML SYRINGE IVP PRN (15:34)
[2018-01-31] MEDS ORDERED: Dextrose Gel 15 GM/37.5 ML TUBE PO PRN ×2 (15:34)
--- NOTE | 2018-01-31 15:45 | Internal Med History&Physical ---
<ChunChristophe - Last Filed: 01/31/18 16:26> Date of Encounter: 01/31/18 Time of Encounter: 14:00 Internal Medicine - H&P: HPI Chief complaint: CP/SOB Admitted From: Emergency Dept Plans for Post Hospital Care: Home History of present illness: Mr. Stoddard is a 42 year old male w/PMH of polycythemia, DM, HTN, and HLD presents from [facility] w/CC of chest pain for the past year. Pt. states pressure in chest is worse over the past three days and is worse w/deep inspiration. No alleviating or aggravating factors. Pt. reports that he had several EKGs over the past several weeks and had unremarkable stress test in 01/2016. States that he has an aneurysm in his left neck and reports dizziness over the past several days. Associated sx: weakness/fatigue, SOB, diaphoresis, and pressure in the left neck. Was seen in the ED on 01/17/18 and left AMA because he was feeling better. States he will not be leaving AMA this time. Pt. denies recent illness, fever, chills, nausea, vomiting, changes in vision, headache, palpitations, abdominal pain, nausea, vomiting, diarrhea, constipation, numbness, tingling, pre-syncope, or syncope. Past Med Surg Social Fam HX - Past Medical History Source: patient, old records reviewed Medical history: diabetes, hyperlipidemia, hypertension, other Additional medical history: POLYCYTHEMIA VERA Psychiatric history: no psych history - Past Surgical History Surgical History: appendectomy, cholecystectomy Additional surgical history: Lymph node biopsy left axilla - Social History Smoking Status: Former smoker Packs per day: 1.5 PPD - Reports quitting 3 days ago Smokeless Tobacco Status: No Alcohol use: none Drug use: none Current living situation: Home Activity Level: Independent ambulation, Very active Recent Out of Country Travel Within the Last 8 Weeks: No Exposure or Possible Exposure to Illness During Travel: No - Family History Mother Name: cristina stoddard Race: Family Member Ethnicity: Non- Living Status: Age at : 53 Cause of : Lymphoma Hx Family Cardiac Disorders: Yes (CAD) Hx Family Cancer: Yes (Lymphoma) Hx Family Endocrine Disorder: Yes (DM) Father History Unknown: Yes Adopted: No Race: Family Member Ethnicity: Non- Living Status: Age at : 56 Cause of : Colon cancer Hx Family Cardiac Disorders: Yes (Bypass x3, RI) Hx Family Cancer: Yes (Colon) Hx Family Endocrine Disorder: Yes (DM) Brother Race: Family Member Ethnicity: Non- Living Status: Still Living Hx Family Medical Disorders: No Sister Race: Family Member Ethnicity: Non- Living Status: Still Living Hx Family Medical Disorders: No Internal Medicine - H&P: Meds Potassium Chloride [K-Tab ER] 40 meq PO QID 10/06/15 [History] Buprenorphine HCl/Naloxone HCl [Buprenorphin-Naloxon 8-2 mg Sl] 1 tab SL BID 01/28 [History] Losartan Potassium [Cozaar] 50 mg PO DAILY 01/17/18 [History] Metformin HCl 500 mg PO BID 01/17/18 [History] Potassium Chloride [Klor-Con] 25 meq PO DAILY PRN 01/17/18 [History] Simvastatin [Zocor] 40 mg PO HS 01/17/18 [History] 3 Allergy/AdvReac Type Severity Reaction Status Date / Time dextrose AdvReac See Verified 03/05/17 10:45 Comments Glucose AdvReac See Verified 03/05/17 10:45 Comments All Systems PM: A 10-system review of systems was performed and is negative for pertinent findings except as documented above in the HPI. - Constitutional Constitutional: as per HPI, fatigue, weakness, no chills, no fever(s), no night sweats - EENT Eyes: no change in vision, no discharge, no pain, no photophobia Ears: no ear discharge, no ear pain, no tinnitus Nose, mouth and throat: no dysphagia, no nasal discharge, no neck pain, no sore throat - Breasts Breasts: as per HPI - Cardiovascular Cardiovascular ROS IM: as per HPI, chest pain, diaphoresis, dyspnea, dyspnea on exertion, lightheadedness, no palpitations, no syncope - Respiratory Respiratory: as per HPI, dyspnea, dyspnea on exertion, pain on inspiration, no cough, no wheezing, no excessive phlegm production - Gastrointestinal Gastrointestinal: no abdominal pain, no diarrhea, no hematemesis, no hematochezia, no melena, no nausea, no vomiting - Genitourinary Genitourinary ROS male: as per HPI - Musculoskeletal Musculoskeletal ROS IM: no numbness, no tingling - Integumentary Integumentary IM: no rash, no unusual bruising - Neurological Neurological ROS: as per HPI, dizziness, weakness, no confusion, no convulsions , no focal weakness, no numbness, no tingling, no tremor(s) - Psychiatric Psychiatric: as per HPI - Endocrine Endocrine IM: as per HPI - Hematologic/Lymphatic Hematologic/Lymphatic: no easy bruising - Allergic/Immunologic Allergic/Immunologic: as per HPI - Constitutional General appearance: Present: cooperative, A&O X 3, morbidly obese, pleasant, answers questions appropriately - Head Head exam: Present: atraumatic, normocephalic - Eye Eye exam: Present: PERRL, conjuntiva pink, sclera anicteric Pupils: Present: PERRL - ENT ENT exam: Present: normal exam - Neck Neck exam general surgery: Present: normal inspection, supple, trachea midline. Absent: lymphadenopathy - Respiratory Respiratory exam: Present: CTAB. Absent: accessory muscle use, rales, rhonchi, wheezes - Cardiovascular Cardiovascular exam: Present: RRR, +S1, +S2. Absent: diastolic murmur, gallop, rubs, systolic murmur - GI/Abdominal GI/Abdominal exam: Present: normal bowel sounds, soft, no peritoneal signs. Absent: distended, tenderness - Rectal Rectal exam: Present: deferred - Additional comments: exam deferred. - Extremities Exam Extremities exam: Present: warm, radial pulses palpable and symmetrical. Absent : calf tenderness, cyanotic, pedal edema - Back Exam Back exam: Present: normal inspection - Neurological Exam Neurological exam: Present: CN II-XII intact, oriented X3, no focal deficits. Absent: pronater drift, facial droop, speech deficit - Psychiatric Psychiatric exam: Present: normal affect, normal mood - Skin Skin exam: Present: dry, intact Internal Med - H&P Results - EKG Data EKG shows normal: sinus rhythm - EKG Data Prior EKG available for review: no EKG comments: 01/31/18 15:55 EKG dated 01/31/18 shows sinus rhythm with moderate intraventricular conduction delay. - Diagnostic Studies Chest x-ray Additional comments: EXAMINATION: TWO VIEWS OF THE CHEST 01/31/2018 11:45 am COMPARISON: January 17, 2018 HISTORY: ORDERING SYSTEM PROVIDED HISTORY: chest pain Acute atypical chest pain. Initial encounter. FINDINGS: The cardiomediastinal silhouette is within normal range. Lungs are clear. There is no focal pulmonary consolidation, pleural effusion, pneumothorax, or evidence of airspace pulmonary edema. XR/XR chest 2V IMPRESSION: 1. No radiographic finding to account for patient's chest pain. D/ / Bayron Caro MD / Bayron Caro MD Interpreting Provider: Bayron Caro MD - Assessment and plan (1) Chest pain Current Visit: Yes Status: Acute Assessment and plan: Acute on chronic CP for the past year that has worsened recently. Pt. reports SOB and diaphoresis over the past three days. Pt. states pressure in chest is worse over the past three days and is worse w/deep inspiration and w/o radiation. No alleviating or aggravating factors. Pt. reports that he had several EKGs over the past several weeks and had unremarkable stress test in 2015. States that he has an aneurysm in his left neck and reports dizziness over the past several days. Associated sx: weakness/fatigue, SOB, diaphoresis, and pressure in the left neck. Initial troponin <0.03. Will trend. Echocardiogram. Last stress test in 01/2016 was unremarkable. Heart cath w/o stents in 03/2016. Continuous cardiac telemetry. Aspirin. Continue Zocor. Lipid panel in a.m. labs. Consider Cardiology consult if troponins and/or Echocardiogram results abnormal. Pt. discussed w/Dr. Brasher who agrees w/plan of care. Pt. is high risk for cardiac event and further morbidity based on current and recurrent CP sx, familial hx of RI/CAD, hx; and risk factors of DM, HTN, HLD, morbid obesity, and recent tobacco abuse. Observation. Qualifiers: Chest pain type: chest pain on breathing Qualified Code(s): R07.1 - Chest pain on breathing (2) SOB (shortness of breath) Current Visit: Yes Status: Acute Assessment and plan: Acute SOB w/CP sx. Pt. denies home O2 use. Supplemental O2 with titration and SPO2 monitoring when necessary. Sleep study ordered due to patient's high Hgb and Hct. Concern for possible PE d/t pts. sx and polycythemia so CTA of chest ordered. (3) HTN (hypertension) Current Visit: Yes Status: Chronic Assessment and plan: Hx of chronic HTN. Monitor pt. and VS. Continue patient's Cozaar. Qualifiers: Hypertension type: essential hypertension Qualified Code(s): I10 - Essential (primary) hypertension (4) HLD (hyperlipidemia) Current Visit: Yes Status: Chronic Assessment and plan: Hx of chronic HLD. Lipid panel in a.m. labs. Continue patient's Zocor. 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 Patient reports pressure in his left neck during CP symptoms. Bilateral carotid Dopplers ordered. (6) Polycythemia Current Visit: Yes Status: Chronic Assessment and plan: Hx of chronic polycythemia. Pt. reports he sees Dr. Wyatt in [place] for this. Pt. is awaiting test results from Dr. Wyatt from last visit. Monitor APTT and INR. Heparin 5,000 units SQ Q8HR for DVT prophylaxis. Pt. to f/u w/Dr. Wyatt OP. (7) Diabetes Current Visit: Yes Status: Chronic Assessment and plan: Hx of chronic diabetes controlled with metformin. Will hold patient's oral medications and administer low-dose correction insulin sliding scale. Patient has adverse reaction to dextrose in glucose, so use orange juice and peanut butter/banana for hypoglycemia. Qualifiers: Diabetes mellitus type: type 2 Diabetes mellitus gis specialist insulin use: without chcf use Diabetes mellitus complication status: without complication Qualified Code(s): E11.9 - Type 2 diabetes mellitus without complications (8) Tobacco abuse Current Visit: Yes Status: Chronic Assessment and plan: Hx of chronic tobacco abuse. Pt. reports quitting 3 days ago. Reports smoking 1.5 PPD. 21 mg nicotine patch. (9) DVT prophylaxis Current Visit: Yes Status: Acute Assessment and plan: Heparin 5,000 units SQ Q8HR for DVT prophylaxis. Monitor pt. for signs of bleeding. (10) Dizziness Current Visit: Yes Status: Acute Assessment and plan: Acute dizziness w/CP sx. Pt. reports hx of aneurysm of the left internal carotid artery. Bilateral carotid Dopplers ordered. Falls/safety precautions. - Time Spent With Patient Total time spent is greater than 50% in coordination of care (as documented) at patient's floor/unit and/or counseling patient: Greater than 35 minutes <Kayode Brasher - Last Filed: 02/01/18 07:32> Date of Encounter: 02/01/18 Internal Medicine - H&P: HPI History of present illness: Mr. Stoddard is a 42 year old male All Systems PM: A 10-system review of systems was performed and is negative for pertinent findings except as documented above in the HPI. - Constitutional Vitals: Temp Pulse Resp BP Pulse Ox 98.2 F 82 14 128/74 94 02/01/18 06:56 02/01/18 06:56 02/01/18 06:56 02/01/18 06:56 02/01/18 06:56 Internal Med - H&P Results - Labs Labs: Cardiac Enzymes 01/31/18 02/01/18 Range/Units 18:43 00:43 Troponin I < 0.03 < 0.03 (< 0.04) ng/mL - Impressions ITS Impressions Chest CTA 01/31/18 15:10 IMPRESSION: No findings diagnostic of pulmonary embolus. Slight limitation due to timing of the bolus Multiple small mediastinal, hilar and axillary nodes. Punctate nodules bilaterally. These are too small to characterize. RECOMMENDATIONS: Fleischner Society guidelines for follow-up and management of incidentally detected pulmonary nodules: Single Solid Nodule: Nodule size less than 6 mm In a low-risk patient, no routine follow-up. In a high-risk patient, optional CT at 12 months. Nodule size equals 6-8 mm In a low-risk patient, CT at 6-12 months, then consider CT at 18-24 months. In a high-risk patient, CT at 6-12 months, then CT at 18-24 months. Nodule size greater than 8 mm In a low-risk patient, consider CT at 3 months, PET/CT, or tissue sampling. In a high-risk patient, consider CT at 3 months, PET/CT, or tissue sampling. Multiple Solid Nodules: Nodule size less than 6 mm In a low-risk patient, no routine follow-up. In a high-risk patient, optional CT at 12 months. Nodule size equals 6-8 mm In a low-risk patient, CT at 3-6 months, then consider CT at 18-24 months. In a high-risk patient, CT at 3-6 months, then CT at 18-24 months. Nodule size greater than 8 mm In a low-risk patient, CT at 3-6 months, then consider CT at 18-24 months. In a high-risk patient, CT at 3-6 months, then CT at 18-24 months. - Low risk patients include individuals with minimal or absent history of smoking and other known risk factors. - High risk patients include individuals with a history or smoking or known risk factors. Radiology 2017 http://pubs.rsna.org/doi/full/10.1148/radiol.[email or web address] D/ / Boston Gustafson / Boston Gustafson Interpreting Provider: Boston Gustafson - Attending Attestation I personally evaluated this patient and discussed their management with the Nurse Practitioner. I reviewed the their note and agree with the documented findings, medical decision making, and plan of care. - Assessment and plan (1) Diabetes Current Visit: Yes Status: Chronic Qualifiers: Diabetes mellitus type: type 2 Diabetes mellitus gis specialist insulin use: without gis specialist use Diabetes mellitus complication status: without complication Qualified Code(s): E11.9 - Type 2 diabetes mellitus without complications (2) Tobacco abuse Current Visit: Yes Status: Chronic (3) DVT prophylaxis Current Visit: Yes Status: Acute (4) Aneurysm of left internal carotid artery Current Visit: Yes Status: Chronic (5) Chest pain Current Visit: No Status: Acute Qualifiers: Chest pain type: unspecified Qualified Code(s): R07.9 - Chest pain, unspecified (6) Polycythemia Current Visit: No Status: Acute (7) HTN (hypertension) Current Visit: Yes Status: Chronic Qualifiers: Hypertension type: essential hypertension Qualified Code(s): I10 - Essential (primary) hypertension (8) HLD (hyperlipidemia) Current Visit: Yes Status: Chronic Qualifiers: Hyperlipidemia type: pure hypercholesterolemia Qualified Code(s): E78.00 - Pure hypercholesterolemia, unspecified; E78.0 - Pure hypercholesterolemia (9) SOB (shortness of breath) Current Visit: Yes Status: Acute (10) Dizziness Current Visit: Yes Status: Acute - Time Spent With Patient Total time spent is greater than 50% in coordination of care (as documented) at patient's floor/unit and/or counseling patient:
[2018-01-31] MEDS: Nicotine 21 MG PATCH.TD24 TD SCH (16:35)
[2018-01-31] MEDS: 0.9 % Sodium Chloride 1,000 ML IVC SCH (16:35)
[2018-01-31] MEDS: Insulin LISPRO 300 UNITS/3 ML VIAL SQ SCH (18:47)
[2018-01-31] MEDS ORDERED: Insulin LISPRO 300 UNITS/3 ML VIAL SQ SCH (21:00)
[2018-01-31] MEDS: *HR* Heparin 5,000 UNIT/ML VIAL SQ SCH (21:25)
[2018-02-01] MEDS: 0.9 % Sodium Chloride 1,000 ML IVC SCH ×2 (02:53→13:53)
[2018-02-01] MEDS: *HR* Heparin 5,000 UNIT/ML VIAL SQ SCH ×2 (06:04→13:58)
[2018-02-01 07:35] LABS: Basophils # 0.1 K/mcL (0.0-0.2); Eosinophils # 0.2 K/mcL (0.0-0.6); Eosinophils % 2.4 %; Hematocrit 51.2 % (37.5-50.1); Hemoglobin 18.2 g/dL (12.9-16.9); Immature Granulocytes % 1.3 % (0-4); Lymphocytes # 2.9 K/mcL (0.6-4.6); Lymphocytes % 32.6 %; Mean Corpuscular HGB Conc 35.5 g/dL (31.6-35.5); Mean Corpuscular Hemoglobin 32.8 pg (28.0-33.3); Mean Corpuscular Volume 92.3 fL (83.0-100.0); Mean Platelet Volume 9.2 fL (9.4-12.4); Monocytes # 0.8 K/mcL (0.0-1.3); Monocytes % 9.3 %; Neutrophils # 4.8 K/mcL (1.6-8.9); Platelet Count 263 K/mcL (140-400); Red Blood Count 5.55 M/mcL (4.19-5.50); Red Cell Distribution Width 12.7 % (11.5-14.5); Segmented Neutrophils % 53.4 %
[2018-02-01 07:39] LABS: INR 0.9; Prothrombin Time 10.4 Seconds (9.4-12.1)
[2018-02-01 07:42] LABS: Activated Partial Thrombo Time 30.9 Seconds (26.0-36.0)
[2018-02-01 07:57] LABS: Alanine Aminotransferase 37 Units/L (7-52); Albumin 4.2 g/dL (3.5-5.7); Albumin/Globulin Ratio 1.6 (1.1-2.2); Alkaline Phosphatase 53 Units/L (34-104); Aspartate Amino Transferase 28 Units/L (13-39); BUN/Creatinine Ratio 14 (6-26); Bilirubin,Total 0.6 mg/dL (0.3-1.0); Blood Urea Nitrogen 8 mg/dL (6-20); Calcium 8.9 mg/dL (8.6-10.3); Carbon Dioxide 27 mEq/L (23-29); Chloride 105 mEq/L (98-107); Chol/HDL Ratio 4.6 (0-4.9); Cholesterol 170 mg/dL (< 200); Globulin 2.6 g/dL (2.4-3.5); Glucose 123 mg/dL (70-105); HDL Cholesterol 37 mg/dL (40-59); LDL Cholesterol,Calculated 70 mg/dL (0-99); Magnesium 1.8 mg/dL (1.6-2.6); Osmolality,Calculated 286 (280-300); Potassium 3.9 mEq/L (3.5-5.1); Sodium 138 mEq/L (136-145); Total Protein 6.8 g/dL (6.4-8.9); Triglycerides 314 mg/dL (< 150); eGFR For African Americans > 60 (> 60); eGFR For Non-African Americans > 60 (> 60)
[2018-02-01] MEDS: Insulin LISPRO 300 UNITS/3 ML VIAL SQ SCH ×3 (08:08→17:39)
[2018-02-01] MEDS: Nicotine 21 MG PATCH.TD24 TD SCH (08:42)
[2018-02-01 13:58] VITALS: BP 143/79
--- NOTE | 2018-02-01 18:01 | Discharge Summary ---
- NOTES TO OUTPATIENT PROVIDER Notes to Outpatient Provider: Repeat follow up CT. Patient found to have multiple punctate pulmonary nodules w/ smoking history. Orders not resulted at time of discharge: Pending orders 01/31/18 15:11 ECG 12 lead ECG [ECG] Routine 01/31/18 15:25 Respiratory Infection Panel [MOLMIC] Stat 02/01/18 07:06 A1C [Hgb A1C] AM 0400 02/02/18 04:00 Complete Blood Count [HEME] AM 0400 Comprehensive Metabolic Panel AM 0400 02/03/18 04:00 Complete Blood Count [HEME] AM 0400 Comprehensive Metabolic Panel AM 0400 Date of Encounter: 02/01/18 Time of Encounter: 13:00 - Discharge Diagnosis (1) Chest pain Priority: Primary Status: Acute Assessment and Plan: Acute on chronic CP worse with deep inspiration CT PE negative. Had a stress test 01/2016 negative. EKG NSR, Troponin negative x2. Chest pain completely resolved. ECHO no significant findings. Consider repeat stress test but patient asked to leave this evening as he has to make an appointment tomorrow. And already has an appointment with cardiology on Friday. Will discuss need to possible repeat stress test or not then as outpatient. Qualifiers: Chest pain type: chest pain on breathing Qualified Code(s): R07.9 - Chest pain, unspecified (2) Aneurysm of left internal carotid artery Priority: Secondary Status: Chronic Assessment and Plan: Left neck discomfort resolved. Vascular study showed no significant abnormalities (3) Diabetes Priority: Secondary Status: Chronic Assessment and Plan: c/w home dose metformin on discharge Qualifiers: Diabetes mellitus type: type 2 Diabetes mellitus oil heaterman insulin use: without oil heaterman use Diabetes mellitus complication status: without complication Qualified Code(s): E11.9 - Type 2 diabetes mellitus without complications (4) Polycythemia Priority: Secondary Status: Acute Assessment and Plan: Elevated Hb. He follows with Dr. Wyatt in [facility]. (5) HTN (hypertension) Priority: Secondary Status: Chronic Assessment and Plan: c/w home meds Qualifiers: Hypertension type: essential hypertension Qualified Code(s): I10 - Essential (primary) hypertension (6) HLD (hyperlipidemia) Priority: Secondary Status: Chronic Assessment and Plan: c/w home meds Qualifiers: Hyperlipidemia type: pure hypercholesterolemia Qualified Code(s): E78.00 - Pure hypercholesterolemia, unspecified; E78.0 - Pure hypercholesterolemia (7) Pulmonary nodule Priority: Secondary Status: Acute Assessment and Plan: Multiple punctate nodules noted incidentally on CT scan. Patient with no fever, chills, night sweats noted. Given smoking history (recently quit), recommended f/u CT scan in the next 6 months and counseled on quitting smoking. Will follow up with PMD. Hospital course: Mr. Ochoa is a 42 year old male with PMH Polycythemia, HLD, DM, HTN, L. ICA aneurysm? presented with worsening chest pain worse with deep inspiration. Concern for cardiac and possible PE. CTA showed no PE but multiple punctate nodules. No alarm features including fever, chills, night sweats, significant noted weight loss.Troponins negative x2 and EKG with NSR. Patient's chest pain resolved by the time seen in the morning and requesting to come home. ECHO and carotid dopplers with no significant anomalies. Patient symptoms resolved and now requesting to go home. Of note, patient has had a stress test in 01/2016 that was negative and a heart cath in 03/2016 with no stents placement. Considering repeat stress test on this admission but patient already has an appointment with cardiology on friday and wants to get that done as outpatient instead if he needs to. Will discharge patient to follow up with PMD and cardiology. Will need follow up repeat CT. Discharge discussed with: patient, family, nurse - Time Spent with Patient Total time spent providing and/or coordinating discharge services: Greater than 30 minutes - Discharge Medications Home Medications: Potassium Chloride [K-Tab ER] 40 meq PO QID 10/06/15 [History] Buprenorphine HCl/Naloxone HCl [Buprenorphin-Naloxon 8-2 mg Sl] 1 tab SL BID 01/28 [History] Losartan Potassium [Cozaar] 50 mg PO DAILY 01/17/18 [History] Metformin HCl 500 mg PO BID 01/17/18 [History] Potassium Chloride [Klor-Con] 25 meq PO DAILY PRN 01/17/18 [History] Simvastatin [Zocor] 40 mg PO HS 01/17/18 [History] Nicotine Patch [Nicoderm] 21 mg TD DAILY patch.td24 02/01/18 [Rx] Allergies/Adverse Reactions: 3 Allergy/AdvReac Type Severity Reaction Status Date / Time dextrose AdvReac See Verified 03/05/17 10:45 Comments Glucose AdvReac See Verified 03/05/17 10:45 Comments Date of admission: 01/31/18 14:18 Primary care physician: Rashid Baugh - Constitutional Vitals: Temp Pulse Resp BP Pulse Ox 98.7 F 82 18 143/79 96 02/01/18 13:58 02/01/18 13:58 02/01/18 13:58 02/01/18 13:58 02/01/18 13:58 General: Alert and oriented Skin: Normal color, no rash, no lesions. HEENT: EOMI, pupils equal, round and reactive. Cardiovascular: Regular rate, regular rhythm. No murmurs appreciated. Lungs:Normal breath sounds, no wheezes or crackles. Abdomen:Soft, non-tender, no rigidity. Extremities:No deformity, no edema or tenderness, no joint swelling or clubbing. Neurological:Normal cognition, no weakness, no numbness. Rest of the physical exam is non contributory General appearance: Present: cooperative, A&O X 3, morbidly obese, pleasant, answers questions appropriately - Patient Status Disposition: Home, Self-Care Condition: Good Overall status at discharge: patient is progressing back to baseline - Discharge Instructions Follow Up With: Rashid Baugh [Primary Care Provider] - - Diet and Activity Activity: resume usual activities as tolerated
[2018-02-02 06:50] LABS: Estimated Average Glucose 131 mg/dl; Hemoglobin A1C 6.2 %
--- NOTE | 2018-02-02 19:14 | Electrocardiograph Report ---
[address] [address] Test Date: 2018-01-31 Pat Name: Shashi Ochoa Department: [id number] Room: 3A44 Gender: M Medical Office Coordinator: Phi : 1975 Requested By: [id number] Order Number: [id number] Reading MD: Dion Conn Measurements Intervals [place] Rate: 68 P: 39 FL: 155 QRS: 5 QRSD: 114 T: 34 QT: 364 QTc: 381 Interpretive Statements SINUS RHYTHM Electronically Signed On 02-02-2018 19:12:31 EDT by Dion Conn
== END 2018-02-01 18:52 | disposition home or self-care (01) ==
LOC: 3ANU → SUATTDRO 14:18 → 3ANU 19:22
PROVIDERS: ADMIT Student in an Organized Health Care Education/Training Program; ATTEND Student in an Organized Health Care Education/Training Program

== ENCOUNTER 2020-07-10 10:39 | Observation (INO) ==
[2020-07-10] MEDS ORDERED: Naloxone 0.4 MG/ML INJ IVP PRN ×2 (12:15→18:58)
[2020-07-10] MEDS ORDERED: Ondansetron ODT 4 MG TAB.RAPDIS SL PRN ×2 (12:16→18:58)
[2020-07-10] MEDS ORDERED: Ketorolac 15 MG/ML VIAL IVP PRN ×2 (12:16→18:58)
[2020-07-10] MEDS ORDERED: 0.9 % Sodium Chloride 1,000 ML IVC ONE (12:20)
[2020-07-10] MEDS ORDERED: 0.9 % Sodium Chloride 1,000 ML IVC SCH ×2 (12:30→18:58)
[2020-07-10] MEDS ORDERED: Dextrose Gel 15 GM/37.5 ML TUBE PO PRN ×4 (12:52→18:58)
[2020-07-10] MEDS ORDERED: *HR* Buprenorphine HCl 8 MG TAB.SUBL SL SCH ×2 (13:15→21:00)
[2020-07-10 15:08] LABS: Adenovirus Not Detected (Not Detect); Bordetella Pertussis Not Detected (Not Detect); Chlamydophila pneumoniae Not Detected (Not Detect); Coronavirus 229E Not Detected (Not Detect); Coronavirus HKU1 Not Detected (Not Detect); Coronavirus NL63 Not Detected (Not Detect); Coronavirus OC43 Not Detected (Not Detect); Human Metapneumovirus Not Detected (Not Detect); Human Rhinovirus/Enterovirus Not Detected (Not Detect); Influenza A Subtype 2009 H1 Not Detected (Not Detect); Influenza B Not Detected (Not Detect); Mycoplasma pneumoniae Not Detected (Not Detect); Parainfluenza Virus 1 Not Detected (Not Detect); Parainfluenza Virus 2 Not Detected (Not Detect); Parainfluenza Virus 3 Not Detected (Not Detect); Parainfluenza Virus 4 Not Detected (Not Detect); Respiratory Syncytial Virus Not Detected (Not Detect); SARS-CoV-2 Not Detected (Not Detect)
[2020-07-10] MEDS ORDERED: Piperacillin/Tazobactam 3.375 GM in 0.9 % Sodium Chloride Mini Bag 100 ML IVPB SCH (16:00)
[2020-07-10] MEDS ORDERED: *HR* HYDROmorphone PF 0.5 MG/0.5 ML SYRINGE IVP PRN ×2 (16:47→18:58)
[2020-07-10] MEDS ORDERED: *HR* OxyCODONE Immed Rel 5 MG TABLET PO PRN (16:47)
[2020-07-10] MEDS ORDERED: Ondansetron 4 MG/2 ML VIAL IVP PRN ×2 (16:47→18:58)
[2020-07-10] MEDS ORDERED: *HR* FentaNYL (PF) 100 MCG/2 ML VIAL ONE (16:54)
[2020-07-10] MEDS ORDERED: Dexamethasone 4 MG/ML VIAL ONE (16:54)
[2020-07-10] MEDS ORDERED: *HR* Propofol 200 MG/20 ML VIAL IVP ONE (16:54)
[2020-07-10] MEDS ORDERED: Ondansetron 4 MG/2 ML VIAL ONE (16:54)
[2020-07-10] MEDS ORDERED: Lidocaine -MPF 2% 2 ML VIAL ONE (16:54)
[2020-07-10] MEDS ORDERED: *HR* Heparin 5,000 UNIT/ML VIAL SQ SCH (18:00)
[2020-07-10 19:12] VITALS: BP 139/73
[2020-07-11] MEDS ORDERED: Piperacillin/Tazobactam 3.375 GM in 0.9 % Sodium Chloride Mini Bag 100 ML IVPB SCH
[2020-07-11] MEDS ORDERED: *HR* Heparin 5,000 UNIT/ML VIAL SQ SCH (06:00)
== END 2020-07-10 20:58 | disposition left against medical advice (07) ==
LOC: 3ANU
PROVIDERS: ADMIT Family Medicine; ATTEND Family Medicine